=== PATIENT | female | born 2000 | race African-American/Black ===

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

== ENCOUNTER 2022-09-27 12:37 | Emergency (ER) | payer MEDICAID, SELFPAY ==
[2022-09-27 12:38] VITALS: BP 128/86; PULSE 84; RESP 16; TEMP 36.6; O2SAT 100; BMI 23.6
[2022-09-27 12:49] VITALS: BP 116/57; PULSE 89; RESP 18; O2SAT 100
--- NOTE | 2022-09-27 13:07 | EDS_ITS ---
HPI History of Present Illness Chief Complaint: Palpitations Informant: patient Onset/Context/Timing Onset: Today Context: Gradual Onset Timing: Continuous Quality: Skipping beat Location: Chest Worsened by: Nothing Relieved by: Nothing Narrative Narrative: Patient presents with palpitations that began today. Patient states that it came on gradually. Patient states she feels some irregular beats in her chest occasionally. Patient states they feel weird. Patient states it is over the substernal area. Patient states nothing makes it better nothing makes it worse. Patient states that it does take her breath away at times. Patient denies any nausea or vomiting. Patient denies any cough or fever. Patient denies any lightheadedness or dizziness. [facility] Medical History Anxiety Asthma Home Medications albuterol sulfate 90 mcg/actuation aerosol inhaler (ProAir HFA) 2 puff inhalation Q6H #8 grams 01/30/17 [Rx Last Taken Unknown] buspirone 5 mg tablet 5 mg PO BID 09/27/22 [History Last Taken Unknown] Allergy/AdvReac Type Severity Reaction Status Date / Time No Known Allergies Allergy Verified 09/27/22 12:49 Family History no significant family his Surgical History no surgical history Social History current occupational status: employed pets and animals: Yes Smoking Status: Never smoker ROS ROS ED Constitutional Constitutional ED: Denies chills or fever(s) Eyes Eyes: Denies blurry vision or change in vision ENT ENT ED: Denies rhinorrhea or sore throat Cardiovascular Cardiovascular: Reports palpitations; Denies chest pain Respiratory/Chest Respiratory/Chest: Denies cough or dyspnea Gastrointestinal Gastrointestinal: Denies nausea or vomiting Genitourinary Genitourinary ED: Denies dysuria or hematuria Musculoskeletal Musculoskeletal: Denies back pain or neck pain Integumentary Denies abscess or rash Neurologic Neurologic: Denies headache(s) or weakness Allergic/Immunologic Allergic/Immunologic ED: Denies mouth swelling or urticaria EXAM Physical Exam Const Vital Signs: 09/27/22 12:38 09/27/22 12:45 09/27/22 12:49 Temperature 98 F Temperature Source Temporal Pulse Rate 84 89 Respiratory Rate 16 18 Respiratory Effort Normal Blood Pressure 128/86 H 116/57 L Blood Pressure Mean 100 76 Pulse Ox 100 100 Oxygen Delivery Method Room Air Room Air Positive well nourished and well developed General Appearance ED: well developed and NAD HEENT Reports moist mucous membranes Neck supple and no JVD Resp normal respiratory effort and clear to auscultation bilaterally Cardio regular rate, regular rhythm and no murmurs GI normal to inspection, nondistended, normoactive bowel sounds and non-tender Palpation: soft Extremity normal to inspection General Extremety ED: Negative for edema or tenderness General Extremity: Negative for edema Neuro oriented x3, CN's II-XII intact bilaterally and no sensory deficits noted Sensorium / Orientation: alert Motor Exam: strength 5/5 throughout Psych mental status grossly normal Skin no rashes or lesions noted MDM MDM MDM Narrative Medical decision making narrative: Differential diagnosis includes cardiac dysrhythmia, cardiac ischemia, electrolyte abnormality, dehydration, pneumothorax, pneumonia, and anxiety. EKG will be obtained to assess for cardiac dysrhythmia and cardiac ischemia. CBC will be obtained to assess for leukocytosis and anemia. Basic metabolic profile will be obtained to assess for electrolyte abnormality and renal function. High-sensitivity troponin will be obtained to assess for cardiac ischemia. Chest x-ray will be obtained to assess for pneumonia and pneumothorax. Lab Data Attestation: I reviewed the patient's lab results. Lab results narrative: CBC was reviewed and was within normal limits. Basic metabolic profile was reviewed and showed a mild hypokalemia of 3.2. Serum hCG was reviewed and was negative. High-sensitivity troponin was reviewed and was normal. Urinalysis was reviewed. There is no evidence of urinary tract infection or hematuria. Labs: Laboratory Results - last 24 hr 09/27/22 09/27/22 13:21 13:31 WBC 6.0 RBC 4.59 Hgb 12.3 Hct 38.2 MCV 83.2 MCH 26.8 L MCHC 32.2 RDW Std Deviation 41.[address] 13.7 Plt Count 307 MPV 9.2 Immature Gran % (Auto) 0.200 Neut % (Auto) 65.3 Lymph % (Auto) 27.7 [place] % (Auto) 5.3 Eos % (Auto) 1.0 Baso % (Auto) 0.5 Absolute Neuts (auto) 3.9 Absolute Lymphs (auto) 1.66 Nucleated RBC % 0 Sodium 140 Potassium 3.2 L Chloride 106 Carbon Dioxide 28.0 Anion Gap 6 BUN 8 Creatinine 0.71 Estim Creat Clear Calc 102.81 Est GFR (MDRD) Af Amer 132 Est GFR (MDRD) Non-Af 109 BUN/Creatinine Ratio 11.3 Glucose 105 Calcium 9.7 Troponin I High Sens 4 Serum , Qual NEGATIVE Urine Color Yellow Urine Clarity Sl. Cloudy Urine pH 7.0 Ur Specific [place] 1.010 Urine Protein Negative Urine Glucose (UA) Normal Urine Ketones 5 H Urine Occult Blood Negative Urine Nitrite Negative Urine Bilirubin Negative Urine Urobilinogen Normal Ur Leukocyte Esterase Negative Urine RBC 0 SEEN Urine WBC 0 SEEN Ur Squamous Epith Cells 0-5 SEEN Urine Bacteria 0 SEEN Urine Mucus 0 SEEN Radiography Chest X-Ray - ED: 2 View, Read by ED Physician and No Acute Disease Diagnostic Testing: PA and lateral chest x-ray was obtained. There are 2 views. On my independent interpretation, lung kim are clear. There is normal cardiac silhouette. Bony thorax is normal. There is no acute process noted. EKG Initial EKG: Attestation: I personally reviewed and interpreted this EKG as follows: Interpretation: No Acute Injury Pattern and Sinus Bradycardia (58) Comments: EKG was obtained. On my independent interpretation, it showed a sinus bradycardia with a rate of 58. MN interval, QRS interval, and QTc intervals were all normal. [place] was normal. There are no acute ST or T wave changes. Prior EKG tracings: available for review Prior: Unchanged (03/10/2016) Treatment and Re-Evaluation :: Patient was given IV fluids. Because of the mild hypokalemia, patient was given a dose of oral potassium here. Discharge Plan Triage Chief Complaint: Palpitations ED Provider: Jeb Fournier Dx/Rx/DC Orders Clinical Impression: Heart palpitations, Anxiety Instructions: ED Palpitations Prescriptions: No Action albuterol sulfate [ProAir HFA] 90 mcg/actuation HFA aerosol inhaler 2 puff INHALATION Q6H Qty: 8 0RF Rx Instructions: administer with spacer buspirone 5 mg tablet 5 mg PO BID Primary Care Provider: Care Physician,No Primary Referrals: Maggie Jama MD [Non-Staff] - 5-7 Days Disposition Disposition: Home, Self Care
[2022-09-27 13:26] LABS: Bacteria 0 SEEN /hpf (None Seen); Mucous, Urine 0 SEEN /hpf (<or=2+); Red Blood Cells-Urine 0 SEEN /hpf (0-5); White Blood Cells 0 SEEN /hpf (0-5)
[2022-09-27] MEDS: 0.9% Normal Saline 1,000 ML 1000 ML IV (13:28)
--- NOTE | 2022-09-27 13:33 | RAD_ITS ---
EXAM: XR CHEST, 2 VIEWS CLINICAL INDICATION: Palpitations TECHNIQUE: Frontal and lateral views of the chest. COMPARISON: 03/07/2016. FINDINGS: LUNGS AND PLEURAL SPACES: The lungs are clear. No pneumothorax. No effusion. HEART: Unremarkable. Cardiac silhouette not enlarged. MEDIASTINUM: Central airways and mediastinal contour are unremarkable. BONES/JOINTS: Unremarkable. SOFT TISSUES: Unremarkable. RAD/Chest PA and Lateral IMPRESSION: Normal chest radiographs and unchanged when compared to 03/07/2016. Electronically Signed: Dung Negro MD at 15:43 EDT ,
[2022-09-27 13:35] LABS: Color, Urine Yellow (Yellow); Glucose, Dipstick Normal (Normal); Ketone-Dipstick 5 mg/dl (Negative); Leukocyte Esterase-Dipstick Negative /ul (Negative); Nitrite-Dipstick Negative (Negative); Occult Blood-Urine Negative /ul (Negative); Protein-Dipstick Negative (Negative); Urine Bilirubin Dipstick Negative (Negative); Urine Clarity Sl. Cloudy (Clear); Urine Urobilinogen Normal (Normal)
[2022-09-27 13:41] LABS: Squamous Epithelial Cells - UA 0-5 SEEN /hpf (5-10)
[2022-09-27 13:48] LABS: Absolute Lymphocyte Count 1.66 X10^3/uL (0.83-4.51); Absolute Neutrophil Count 3.9 X10^3/uL (2.0-7.7); Basophil# 0.03 X10^3/uL; Basophil% 0.5 % (0-1); Eosinophil# 0.06 X10^3/uL; Hematocrit 38.2 % (37-47); Hemoglobin 12.3 g/dL (12.0-15.0); Lymphocyte # 1.66 X10^3/ul (0.83-4.51); Lymphocyte % 27.7 % (19-41); Mean Corp Hgb Conc 32.2 g/dL (32-36); Mean Corpuscular Hgb 26.8 pg (27.0-32.0); Mean Corpuscular Volume 83.2 fL (81-99); Mean Platelet Vol. 9.2 fl (6.2-12.0); Monocyte# 0.32 X10^3/uL; Monocyte% 5.3 % (0-10); NRBC Flagged by Analyzer 0 % (0-5); Neutrophil # 3.91 X10^3/uL (2.7-7.7); Neutrophil % 65.3 % (47-70); Platelet Count 307 K/mm3 (150-450); RBC Distribution Width CV 13.7 % (11.6-14.6); RBC Distribution Width SD 41.8 fl (35.1-43.9); Red Blood Count 4.59 M/mm3 (4.2-5.4)
[2022-09-27 13:50] LABS: Internal QC Validated? YES +Cl - CLEAR BKGD; Pregnancy, Serum, hCG Quali. NEGATIVE Negative
[2022-09-27 13:59] LABS: Anion Gap 6 (5-15); BUN 8 mg/dL (7-18); BUN/Creat Ratio 11.3 RATIO (10-20); Calcium,Total 9.7 mg/dL (8.5-10.1); Chloride 106 mmol/L (98-107); Creatinine, Serum 0.71 mg/dL (0.55-1.02); EST Glomerular Filtration Rate 109 mL/min (>60); Est Glom Filt Rate - Afr Amer 132 mL/min (>60); Estimated Creatinine Clearance 102.81 ml/min; Glucose 105 mg/dL (74-106); Potassium 3.2 mmol/L (3.5-5.1); Sodium Level 140 mmol/L (136-145); Troponin-I HS 4 pg/mL (3.0-54.0)
--- NOTE | 2022-09-27 14:13 | CM.ED ---
Social Work Note Referral Source: case find Referral Reason: no PCP SW met with patient and introduced herself and role as [facility] Purchase Order Checker. Patient lying on hospital bed and agreeable to speak with SW. SW inquired about patient's insurance and current PCP. Patient verified insurance and reports no current PCP. SW provided patient with a list of local PCPs in network with patient's insurance and accepting new patients. Patient was receptive towards list and voiced no other needs. SW remains available if needs arise. Yecenia Hoffman MSW, [place]
[2022-09-27] MEDS: Potassium Chloride Oral Tablet 20 MEQ 40 MEQ PO (14:33)
[2022-09-27 15:46] VITALS: BP 124/78; PULSE 71; RESP 16; O2SAT 99
== END 2022-09-27 15:47 | disposition home or self-care (01) ==
PROVIDERS: Emergency Provider Emergency Medicine; Visit Provider Emergency Medicine
DX: R00.2 Palpitations (principal); F41.9 Anxiety disorder, unspecified; E87.6 Hypokalemia
CPT/HCPCS: 71046; 80048; 81001; 84484; 84703; 85025; 93005; 96360; 99285; J7030; A4216